=== PATIENT | male | born 1970 | race Caucasian/White ===

== ENCOUNTER 2018-01-11 19:33 | Emergency (ER) | payer BC ==
[~2018-01-11] VITALS: Ht 180.3 cm; Wt 127.0 kg
[~2018-01-11 19:33] MED LIST: ACETAMINOPHEN-1 EAC1 PO; AMLODIPINE BESY10 MG PO; BIOFREEZE118 ML TP; FLEXERIL PO; METFORMIN HCL500 MG PO; NABUMETONE 750750 M1 PO
[2018-01-11 20:34] LABS: CALCIUM 8.5 mg/dL (8.5-10.1); CREATININE 0.9 mg/dL (0.6-1.3); POTASSIUM 4.5 mmol/L (3.5-5.1)
[2018-01-11 20:39] LABS: ALBUMIN 3.8 g/dL (3.4-5.0); TOTAL BILIRUBIN 0.4 mg/dL (<0.1-1.0); TOTAL PROTEIN 7.3 g/dL (6.4-8.2)
[2018-01-11] MEDS ORDERED: ZOFRAN ODT4 MG PO (21:30)
[2018-01-11] MEDS ORDERED: BUTALB-APAP-CA1 EACH PO (21:30)
[2018-01-11 21:49] VITALS: BP 158/82
== END 2018-01-11 21:51 | disposition home or self-care (01) ==
LOC: M.ERS 19:33
PROVIDERS: Physician Assistant
DX: G44.319 Acute post-traumatic headache, not intractable (principal); R11.2 Nausea with vomiting, unspecified; I10 Essential (primary) hypertension; E11.9 Type 2 diabetes mellitus without complications; W22.8XXA Striking against or struck by other objects, initial encounter; Y93.89 Activity, other specified; Y92.89 Other specified places as the place of occurrence of the external cause; Y99.0 Civilian activity done for income or pay